=== PATIENT | female | born 1970 | race Caucasian/White ===

== ENCOUNTER 2017-01-15 10:47 | Inpatient (IN) | payer BC ==
[2017-01-12 12:52] LABS: HEMATOCRIT 38.7 % (36.0-48.0); HEMOGLOBIN 13.1 g/dL (12.0-16.0)
[2017-01-12 13:03] LABS: BUN (BLOOD UREA NITROGEN) 15 MG/DL (6-23); CALCIUM, SERUM 8.5 MG/DL (8.5-10.4); CHLORIDE, SERUM 112 MMOL/L (96-112); CO2 (CARBON DIOXIDE) 26 MMOL/L (24-34); CREATININE 1.02 MG/DL (0.55-1.02); GFR AFRICAN AMERICAN 75 ML/MIN (>=60); GFR NON AFRICAN AMERICAN 65 ML/MIN (>=60); GLUCOSE, SERUM 96 MG/DL (60-99); POTASSIUM, SERUM 3.8 MMOL/L (3.5-5.3); SODIUM, SERUM 146 MMOL/L (135-148)
--- NOTE | ~2017-01-15 | OP ---
Record Of Operation [facility] [address] [place]. [address] NAME: FRANCO BRENNAN : 66 STATUS : ADM IN PAT#: [id number] AGE: 46 ADM/REG DATE : 01/15/17 MR#: [id number] REPORT SERV DATE: 01/16/17 DICTATED BY: CANDI CABRALES DATE: 01/15/17 REPORT STATUS : Draft TRANSCRIBED BY: MODL DATE: 01/15/17 DATE OF PROCEDURE: 01/15/2017 PREOPERATIVE DIAGNOSIS: Rectal carcinoma. POSTOPERATIVE DIAGNOSE: Rectal carcinoma. PROCEDURE: Robotic abdominoperineal resection. SURGEON: Shashi Cabrales M.D. ANESTHESIA: General. ESTIMATED BLOOD LOSS: 200 mL. FLUIDS: 1900 mL. INDICATIONS: The patient is a 46-year-old, who presented with advanced rectal tumor which has extended down into the proximal anal canal in the right posterior position. She underwent neoadjuvant chemoradiation and we discussed the options and abdominoperineal resection was recommended. The risks of bleeding, infection, damage to adjacent organs, DVT, wound problems, genitourinary dysfunction, colostomy problems, DVT, recuperation among others were discussed with her and she agreed to proceed. DESCRIPTION: The patient was taken to the operating room and given general anesthetic. The lower extremities were placed in stirrups and well padded. The abdomen and perineum were prepped and draped and the small incision was made in the right upper quadrant and Blake technique was utilized to enter the abdominal cavity using a 12 mm trocar. There was no evidence for injury to abdominal organs, and the pneumoperitoneum was obtained to 15 mmHg pressure and then 8 mm trocars x4 were placed across the abdomen in order to center the robotic dissection just on the left side of the pelvis. The patient was then placed in steep Trendelenburg after placing these trocars under direct vision using the laparoscope and then the robot was docked and a grasper retractor was utilized and: 1. A bipolar fenestrated grasper. 2. The camera. 3. The scissor cautery. I then isolated the inferior mesenteric artery which was clipped twice on the stay side, and divided and the inferior mesenteric vein was also identified and clipped twice on the stay side, and divided. I did a medial to lateral approach and identified the left ureter and gonadal vessels and then dissected a portion of the descending colon to have length for the eventual colostomy. I then did a total mesorectal technique nerve sparing down to the pelvic floor and then divided the pelvic floor musculature with cautery, and then took care to avoid injury to the pelvic autonomic nerves and then once I got down to the pelvic floor and through the posterior pelvic and lateral pelvic floor, I went down inferiorly where I had sutured off the anus and I made a circumferential incision from the perineal side and then delivered the specimen posteriorly as I dissected through the rectovaginal septum. The Record Of Operation [facility] [address] [place]. [address] NAME: FRANCO BRENNAN : 66 STATUS : ADM IN [facility]#: [id number] AGE: 46 ADM/REG DATE : 01/15/17 MR#: [id number] REPORT SERV DATE: 01/16/17 DICTATED BY: CANDI CABRALES DATE: 01/15/17 REPORT STATUS : Draft TRANSCRIBED BY: MYRNA DATE: 01/15/17 specimen was passed off and it appeared to have good margins, and then hemostasis was obtained using electrocautery. I then irrigated the pelvis with sterile saline and closed the pelvic floor with running 2-0 Vicryl and as well as subcutaneous tissue with 2-0 Vicryl and the skin with interrupted 3-0 Vicryl. I then went back to the abdominal part of the operation and placed a 19-Hebrew Evan drain into the pelvis. I checked for hemostasis, which was complete and then brought the end out of the colostomy out through the previously marked stoma site in the left upper quadrant after traversing the anterior and posterior rectus. I closed the right upper quadrant 12 mm trocar site with 0 Vicryl and then all the skin was closed with subcuticular absorbable suture. I then mobilized the colostomy using a Azalea technique of 3-0 chromic. Of additional note, prior to having delivered the specimen intra-abdominally, I had to divide the sigmoid colon with the stapler and also the sigmoid mesentery using bipolar cautery. Having completed the maturation of the stoma, appliance was placed, counts were correct, and she tolerated the procedure well. The procedure was extremely difficult and fairly all portions of the procedure because of the extreme obesity with a BMI of greater than 53. JDS/MODL Shashi Cabrales M.D. / [id number] CC: Lucy Leung M.D.
--- NOTE | ~2017-01-15 | DS ---
Discharge Summary [facility] [address] [place]. [address] NAME: FRANCO BRENNAN : 66 STATUS : DIS IN PAT#: [id number] AGE: 46 ADM/REG DATE : 01/15/17 MR#: [id number] REPORT SERV DATE: 01/26/17 DICTATED BY: CANDI CABRALES DATE: 01/26/17 REPORT STATUS : Draft TRANSCRIBED BY: MYRNA DATE: 01/26/17 Data Collection from hospitalization DISCHARGE DIAGNOSES: 1. Rectal carcinoma. 2. Hypertension. 3. Obesity. 4. Obstructive sleep apnea. 5. History of menorrhagia. 6. Obesity. 7. Vitamin D deficiency. 8. Anxiety and depression. CONSULTATIONS: None. PROCEDURES PERFORMED: Robotic abdominoperineal resection on 01/15/2017. PATHOLOGY: Rectum and sigmoid colon, sigmoid colectomy, and proctectomy - residual invasive adenocarcinoma. MEDICATIONS: Tylenol 500 mg every six hours as needed, Norvasc 5 mg daily, Coreg 12.5 mg twice a day, vitamin D 43249 units weekly, Lexapro 20 mg daily, Advil 200 mg every four hours as needed, Percocet 5/325 one tablet every four hours as needed, and Diovan 160 mg daily. CONDITION AT DISCHARGE: Stable. DISPOSITION: The patient was discharged home to be followed by home health care on a regular diet with activities as instructed. She would follow up with me on 01/26/2017. HOSPITAL COURSE: This is a 46-year-old female who has advanced rectal tumor, which had extended down into the proximal anal canal and in the right posterior position. She had undergone neoadjuvant chemoradiation. Treatment options were discussed and it was elected to proceed with surgical intervention. She was admitted to the hospital at this time for further evaluation and treatment. Upon admission, she was taken to the operating room where she underwent the above-mentioned procedure. She tolerated this well, and there were no complications. On postop day #1, she had no new complaints. She was ambulatory. She had no nausea or vomiting. Her pain was controlled. White blood cell count was 19.2. Creatinine level was 1.04. The Dinh catheter was removed. On 01/17/2017, she had no new complaints except for some nausea and some gas. Her abdomen soft and nontender. Creatinine level was 1.04. White count was now 14.6. Over the next couple of days, she continued to progress. Her diet was advanced. Discharge planning was performed. On 01/19/2017, her T-max was 100.4. Discharge instructions were given. Due to her improved and stable condition, she was discharged home with the above-stated instructions. Information collected by: Carolyne Aceves Discharge Summary [address] [address] NAME: FRANCO BRENNAN : 66 STATUS : DIS IN PAT#: [id number] AGE: 46 ADM/REG DATE : 01/15/17 MR#: [id number] REPORT SERV DATE: 01/26/17 DICTATED BY: CANDI CABRALES DATE: 01/26/17 REPORT STATUS : Draft TRANSCRIBED BY: MYRNA DATE: 01/26/17 I submit the above information as my discharge summary. MARIANO/MYRNA Shashi Cabrales M.D. / [id number] CC: Lucy Leung ASHLEY S
[~2017-01-15 10:47] MED LIST: ACET500CAP PO; ADVIL PO; COREG12 PO; DIOV160 PO; LEXAPRO20 PO; NEBIVOLOL PO; NORV5 PO; SPIRO25 PO; VALSARTAN PO; VITD PO
[2017-01-16 07:32] LABS: BASOPHILS 0 %; EOSINOPHILS 0 %; HEMATOCRIT 35.8 % (36.0-48.0); HEMOGLOBIN 12.5 g/dL (12.0-16.0); IMMATURE GRANULOCYTES 0.2 %; IMMATURE GRANULOCYTES ABSOLUTE 0.04 10/3/uL (0.0-0.11); LYMPHOCYTES ABSOLUTE 0.57 10/3/uL (0.67-4.30); MEAN CORPUS HGB CONC 34.9 g/dL (32.0-36.0); MEAN CORPUSCULAR HEMOGLOB 33.5 pg (26.0-34.0); MEAN PLATELET VOLUME 11.4 fL (9.2-13.0); MONOCYTES 6.6 %; MONOCYTES ABSOLUTE 1.27 10/3/uL (0.21-1.20); NEUTROPHILS 90.2 %; PLATELET COUNT 175 10/3/uL (150-400); RBC DISTRIBUTION WIDTH 12.5 % (12.0-16.0); RED CELL COUNT 3.73 10/6/uL (4.0-5.6); WHITE BLOOD CELLS 19.2 10/3/uL (4.5-10.5)
[2017-01-16 07:33] LABS: MANUAL DIFF NO %
[2017-01-16 07:44] LABS: CALCIUM, SERUM 8.3 MG/DL (8.5-10.4); CHLORIDE, SERUM 105 MMOL/L (96-112); CO2 (CARBON DIOXIDE) 26 MMOL/L (24-34); CREATININE 1.04 MG/DL (0.55-1.02); GFR AFRICAN AMERICAN 74 ML/MIN (>=60); GFR NON AFRICAN AMERICAN 63 ML/MIN (>=60); SODIUM, SERUM 141 MMOL/L (135-148)
[2017-01-16 07:45] LABS: BUN (BLOOD UREA NITROGEN) 8 MG/DL (6-23); GLUCOSE, SERUM 152 MG/DL (60-99)
[2017-01-17 05:10] LABS: BASOPHILS 0.1 %; BASOPHILS ABSOLUTE 0.01 10/3/uL (0.0-0.16); EOSINOPHILS 0.2 %; EOSINOPHILS ABSOLUTE 0.03 10/3/uL (0.0-0.53); HEMATOCRIT 34.2 % (36.0-48.0); HEMOGLOBIN 11.5 g/dL (12.0-16.0); IMMATURE GRANULOCYTES 0.3 %; IMMATURE GRANULOCYTES ABSOLUTE 0.04 10/3/uL (0.0-0.11); LYMPHOCYTES 6.6 %; LYMPHOCYTES ABSOLUTE 0.96 10/3/uL (0.67-4.30); MEAN CORPUS HGB CONC 33.6 g/dL (32.0-36.0); MEAN CORPUSCULAR HEMOGLOB 32.6 pg (26.0-34.0); MEAN CORPUSCULAR VOLUME 96.9 fL (80-100); MEAN PLATELET VOLUME 11.7 fL (9.2-13.0); MONOCYTES ABSOLUTE 1.16 10/3/uL (0.21-1.20); NEUTROPHILS 84.8 %; NEUTROPHILS ABSOLUTE 12.36 10/3/uL (2.02-8.40); PLATELET COUNT 192 10/3/uL (150-400); RBC DISTRIBUTION WIDTH 13.1 % (12.0-16.0); RED CELL COUNT 3.53 10/6/uL (4.0-5.6); WHITE BLOOD CELLS 14.6 10/3/uL (4.5-10.5)
[2017-01-17 05:20] LABS: BUN (BLOOD UREA NITROGEN) 7 MG/DL (6-23); CALCIUM, SERUM 8.3 MG/DL (8.5-10.4); CHLORIDE, SERUM 108 MMOL/L (96-112); CO2 (CARBON DIOXIDE) 28 MMOL/L (24-34); CREATININE 1.04 MG/DL (0.55-1.02); GFR AFRICAN AMERICAN 74 ML/MIN (>=60); GFR NON AFRICAN AMERICAN 63 ML/MIN (>=60); GLUCOSE, SERUM 128 MG/DL (60-99); POTASSIUM, SERUM 3.9 MMOL/L (3.5-5.3); SODIUM, SERUM 143 MMOL/L (135-148)
[2017-01-17 05:28] LABS: MANUAL DIFF NO %
[2017-01-19 07:16] LABS: BASOPHILS 0.2 %; BASOPHILS ABSOLUTE 0.02 10/3/uL (0.0-0.16); EOSINOPHILS 4.3 %; EOSINOPHILS ABSOLUTE 0.38 10/3/uL (0.0-0.53); HEMATOCRIT 31.7 % (36.0-48.0); HEMOGLOBIN 10.6 g/dL (12.0-16.0); IMMATURE GRANULOCYTES 0.7 %; IMMATURE GRANULOCYTES ABSOLUTE 0.06 10/3/uL (0.0-0.11); LYMPHOCYTES 8.3 %; LYMPHOCYTES ABSOLUTE 0.74 10/3/uL (0.67-4.30); MEAN CORPUS HGB CONC 33.4 g/dL (32.0-36.0); MEAN CORPUSCULAR HEMOGLOB 32.6 pg (26.0-34.0); MEAN CORPUSCULAR VOLUME 97.5 fL (80-100); MEAN PLATELET VOLUME 11.1 fL (9.2-13.0); MONOCYTES 8.9 %; MONOCYTES ABSOLUTE 0.79 10/3/uL (0.21-1.20); NEUTROPHILS 77.6 %; NEUTROPHILS ABSOLUTE 6.88 10/3/uL (2.02-8.40); PLATELET COUNT 180 10/3/uL (150-400); RBC DISTRIBUTION WIDTH 12.8 % (12.0-16.0); RED CELL COUNT 3.25 10/6/uL (4.0-5.6); WHITE BLOOD CELLS 8.9 10/3/uL (4.5-10.5)
[2017-01-19 07:17] LABS: MANUAL DIFF NO %
[2017-01-19 07:22] LABS: BUN (BLOOD UREA NITROGEN) 7 MG/DL (6-23); CALCIUM, SERUM 8.6 MG/DL (8.5-10.4); CHLORIDE, SERUM 105 MMOL/L (96-112); CO2 (CARBON DIOXIDE) 27 MMOL/L (24-34); CREATININE 0.86 MG/DL (0.55-1.02); GFR AFRICAN AMERICAN 93 ML/MIN (>=60); GFR NON AFRICAN AMERICAN 80 ML/MIN (>=60); GLUCOSE, SERUM 107 MG/DL (60-99); POTASSIUM, SERUM 3.6 MMOL/L (3.5-5.3); SODIUM, SERUM 142 MMOL/L (135-148)
[2017-01-19] MEDS ORDERED: PCET PO (08:36)
== END 2017-01-19 13:34 | disposition home or self-care (01) | DRG 330 ==
LOC: SDC/OF 10:47 → 5SO 19:05
PROVIDERS: Colon & Rectal Surgery
PROC: 0D1M4Z4 Bypass Descending Colon to Cutaneous, Percutaneous Endoscopic Approach (ICD-10-PCS; 2017-01-15)
PROC: 0DTP4ZZ Resection of Rectum, Percutaneous Endoscopic Approach (ICD-10-PCS; principal; 2017-01-16)
PROC: 0DBN4ZZ Excision of Sigmoid Colon, Percutaneous Endoscopic Approach (ICD-10-PCS; 2017-01-16)
PROC: 0DBQ3ZZ Excision of Anus, Percutaneous Approach (ICD-10-PCS; 2017-01-16)
DX: C20 Malignant neoplasm of rectum (principal); Z68.43 Body mass index [BMI] 50.0-59.9, adult; E66.9 Obesity, unspecified; Z79.899 Other long term (current) drug therapy; I10 Essential (primary) hypertension; G47.33 Obstructive sleep apnea (adult) (pediatric); Z92.21 Personal history of antineoplastic chemotherapy; Z92.3 Personal history of irradiation
CPT/HCPCS: 80048; 84703; 85014; 85018; 85025; 88309; 88341; 88342; A9270-GY; J0690; J1170; J2250; J2405; J2710; J2795; J3010; P9045